=== PATIENT | male | born 1955 | race Hispanic/Latino ===

== ENCOUNTER 2021-08-23 15:11 | Emergency (ER) | payer OTHER ==
[~2021-08-23] VITALS: Ht 177.8 cm; Wt 90.7 kg
[2021-08-23 15:16] VITALS: BP 121/74
[2021-08-23] MEDS ORDERED: DIAZEPAM 5 MG TABLET PO ONE (15:30)
[2021-08-23] MEDS ORDERED: KETOROLAC 60 MG VIAL (30MG/ML) IM ONE (15:30)
[2021-08-23] MEDS ORDERED: ACET-2247 PO (15:32)
[2021-08-23] MEDS ORDERED: CYCL10TA16 PO (15:32)
== END 2021-08-23 16:13 | disposition home or self-care (01) ==
LOC: EDH 15:11
DX: S16.1XXA Strain of muscle, fascia and tendon at neck level, initial encounter (principal); E11.9 Type 2 diabetes mellitus without complications; E78.00 Pure hypercholesterolemia, unspecified; I11.9 Hypertensive heart disease without heart failure; Z79.899 Other long term (current) drug therapy; X58.XXXA Exposure to other specified factors, initial encounter; Y93.89 Activity, other specified; Y92.89 Other specified places as the place of occurrence of the external cause; Y99.8 Other external cause status
CPT/HCPCS: 96372; 99283; J1885